=== PATIENT | male | born 1950 | race African-American/Black ===

== ENCOUNTER 2019-10-10 17:48 | Emergency (ER) | payer MEDICARE, OTHER ==
[~2019-10-10] VITALS: Ht 185 cm; Wt 116.0 kg
--- NOTE | 2019-10-10 18:19 | ED Abdominal Pain ---
General Chief Complaint: Abdominal/GI Problems Stated Complaint: RT SIDE ABD PAIN Nursing Triage Note: Patient ambulatory to ER with complaint of right abdominal pain. Patient states this pain began last night. He states he was constipated today so he took a dulcolax which produced a small BM but he continues to have pain. He denies any nausea or vomiting. Sepsis Screen: No Definite Risk Source of Information: Patient Exam Limitations: No Limitations History of Present Illness Date Seen by Provider: Oct 10, 2019 Time Seen by Provider: 18:18 Initial Comments To ER with right lateral upper abdominal pain for 2 months. He denies nausea or vomiting. He's been to [facility] and put on Zofran, omeprazole. He currently rates the pain 9 out of 10 no fevers or chills. Pain has been constant for 2 months. History of cholecystectomy in 2012. Timing/Duration: Getting Worse, Other (2 months) Severity/Quality: Moderate Location: RUQ Radiation: No Radiation Activities at Onset: None Associated Symptoms: Denies Symptoms Allergies and Home Medications Allergies Coded Allergies: Penicillins (Verified Allergy, Unknown, 10/10/19) Patient Home Medication List Home Medication List Reviewed: Yes Review of Systems Review of Systems Constitutional: see HPI; No chills, No fever EENTM: No Symptoms Reported Respiratory: No Symptoms Reported Cardiovascular: See HPI Gastrointestinal: See HPI, Abdominal Pain Genitourinary: No Symptoms Reported Musculoskeletal: no symptoms reported Skin: no symptoms reported Psychiatric/Neurological: No Symptoms Reported Endocrine: No Symptoms Reported Past Qwnagcn-Ccbudx-Iiqbuw Hx Patient Social History Recent Foreign Travel: No Contact w/Someone Who Travel: No Recent Infectious Disease Expo: No Physical Abuse: No Sexual Abuse: No Mistreated: No Fear: No Physical Exam Vital Signs Vital Signs - First Documented 10/10/19 18:01 Temp 35.1 Pulse 93 Resp 18 B/P (MAP) 153/85 (107) Pulse Ox 96 O2 Delivery Room Air Capillary Refill : Less Than 3 Seconds Height/Weight/BMI Height: '" Weight: lbs. oz. kg; 33.00 BMI Method: General Appearance: WD/WN, no apparent distress Neck: non-tender, full range of motion Respiratory: no respiratory distress, no accessory muscle use Cardiovascular: regular rate, rhythm, no murmur Gastrointestinal: normal bowel sounds, non tender, soft Extremities: normal range of motion, non-tender Neurologic/Psychiatric: alert, normal mood/affect, oriented x 3 Skin: normal color, warm/dry Progress/Results/Core Measures Results/Orders Lab Results Laboratory Tests Test 10/10/19 18:25 Range/Units White Blood Count 11.0 4.3-11.0 10^3/uL Red Blood Count 4.93 4.35-5.85 10^6/uL Hemoglobin 14.2 13.3-17.7 G/DL Hematocrit 44 40-54 % Mean Corpuscular Volume 89 80-99 FL Mean Corpuscular Hemoglobin 29 25-34 PG Mean Corpuscular Hemoglobin Concent 32 32-36 G/DL Red Cell Distribution Width 14.5 10.0-14.5 % Platelet Count 249 130-400 10^3/uL Mean Platelet Volume 11.4 H 7.4-10.4 FL Neutrophils (%) (Auto) 73 42-75 % Lymphocytes (%) (Auto) 15 12-44 % Monocytes (%) (Auto) 9 0-12 % Eosinophils (%) (Auto) 2 0-10 % Basophils (%) (Auto) 1 0-10 % Neutrophils # (Auto) 8.0 H 1.8-7.8 X 10^3 Lymphocytes # (Auto) 1.7 1.0-4.0 X 10^3 Monocytes # (Auto) 1.0 0.0-1.0 X 10^3 Eosinophils # (Auto) 0.3 0.0-0.3 10^3/uL Basophils # (Auto) 0.1 0.0-0.1 10^3/uL Urine Color NADINE H Urine Clarity CLEAR Urine pH 5.5 5-9 Urine Specific [place] >=1.030 1.016-1.022 Urine Protein NEGATIVE NEGATIVE Urine Glucose (UA) NEGATIVE NEGATIVE Urine Ketones NEGATIVE NEGATIVE Urine Nitrite NEGATIVE NEGATIVE Urine Bilirubin NEGATIVE NEGATIVE Urine Urobilinogen 1.0 < = 1.0 MG/DL Urine Leukocyte Esterase NEGATIVE NEGATIVE Urine RBC (Auto) NEGATIVE NEGATIVE Urine RBC NONE /HPF Urine WBC RARE /HPF Urine Crystals NONE /LPF Urine Bacteria FEW H /HPF Urine Casts NONE /LPF Urine Mucus SMALL H /LPF Urine Culture Indicated NO Sodium Level 139 135-145 MMOL/L Potassium Level 3.8 3.6-5.0 MMOL/L Chloride Level 99 98-107 MMOL/L Carbon Dioxide Level 26 21-32 MMOL/L Anion Gap 14 5-14 MMOL/L Blood Urea Nitrogen 13 7-18 MG/DL Creatinine 0.83 0.60-1.30 MG/DL Estimat Glomerular Filtration Rate > 60 BUN/Creatinine Ratio 16 Glucose Level 92 70-105 MG/DL Calcium Level 9.9 8.5-10.1 MG/DL Corrected Calcium 10.3 H 8.5-10.1 MG/DL Total Bilirubin 1.2 H 0.1-1.0 MG/DL Aspartate Amino Transf (AST/SGOT) 200 H 5-34 U/L Alanine Aminotransferase (ALT/SGPT) 60 H 0-55 U/L Alkaline Phosphatase 409 H 40-136 U/L Total Protein 7.9 6.4-8.2 GM/DL Albumin 3.5 3.2-4.5 GM/DL Lipase 14 8-78 U/L My Orders Orders - YUNG WOO PAINT MIXER MACHINE Cbc With Automated Diff (10/10/19 18:13) Comprehensive Metabolic Panel (10/10/19 18:13) Lipase (10/10/19 18:13) Ed Iv/Invasive Line Start (10/10/19 18:13) Ct Abdomen/Pelvis W (10/10/19 18:17) Fentanyl Injection (Sublimaze Injection (10/10/19 18:30) Iohexol Injection (Omnipaque 350 Mg/Ml 1 (10/10/19 19:00) Received Contrast (Hold Metformin- Contr (10/10/19 19:00) Ns (Ivpb) (Sodium Chloride 0.9% Ivpb Bag (10/10/19 19:00) Oxycodone Immediate Rel Tablet (Oxyir Ta (10/10/19 20:00) Fentanyl Injection (Sublimaze Injection (10/10/19 20:00) Oxycodone Immediate Rel Tablet (Oxyir Ta (10/10/19 19:45) Medications Given in ED Current Medications Medications Dose Ordered Sig/Aki Route Start Time Stop Time Status Last Admin Dose Admin Fentanyl Citrate 50 mcg ONCE ONCE IVP 10/10/19 18:30 10/10/19 18:31 DC 10/10/19 18:28 50 MCG Fentanyl Citrate 50 mcg ONCE ONCE IVP 10/10/19 20:00 10/10/19 20:01 DC 10/10/19 19:53 50 MCG Iohexol 100 ml ONCE ONCE IV 3/13/20 19:00 10/10/19 19:03 DC 10/10/19 19:16 100 ML Oxycodone HCl 5 mg ONCE ONCE PO 10/10/19 20:00 10/10/19 20:01 DC 10/10/19 19:53 5 MG Sodium Chloride 100 ml ONCE ONCE IV 10/10/19 19:00 10/10/19 19:03 DC 10/10/19 19:16 100 ML Vital Signs/I&O 10/10/19 18:01 Temp 35.1 Pulse 93 Resp 18 B/P (MAP) 153/85 (107) Pulse Ox 96 O2 Delivery Room Air Blood Pressure Mean: 107 Diagnostic Imaging Diagonstic Imaging: CT Comments NAME: FROYLAN EDMONDSYUMIKO MED REC#: [id number] PT STATUS: REG ER : 1950 PHYSICIAN: YUNG WOO APRN ADMIT DATE: 10/10/19/ER Draft Date of Exam:10/10/19 CT ABDOMEN/PELVIS W PROCEDURE: CT abdomen and pelvis with contrast. TECHNIQUE: Multiple contiguous axial images were obtained through the abdomen and pelvis after administration of intravenous contrast. Auto Exposure Controls were utilized during the CT exam to meet ALARA standards for radiation dose reduction. INDICATION: Right-sided abdominal pain. Constipation There are multiple liver lesions present involving all segments of the liver ranging in size from several millimeters up to the confluence of lesions in the central portion of the liver involving an area measuring approximately 11 x 12 cm. Changes are most consistent with metastatic disease as there is a multicystic complex mass in the head of the pancreas measuring approximately 5 x 6 cm. The bile ducts are not dilated. The gallbladder is absent. The body and tail of the pancreas appear normal. The adrenals are normal. Kidneys, ureters and bladder are normal. No acute bowel abnormality is seen. There is a small ventral hernia at the level of the umbilicus. There is a small amount of ascites in the dependent portion of the pelvis. No acute bony abnormality is seen. There are multiple subcentimeter lesions in both lower lobes also most likely secondary to metastatic disease. IMPRESSION: There is a complex multicystic mass involving the head of the pancreas which most likely represents primary pancreatic neoplasm with diffuse metastatic disease to the liver and lungs. Dictated on workstation # [id number] Dict: 10/10/191929 Trans: 10/10/191943 BRANDAN [id number] Interpreted by: JUSTIN MALDONADO MD Electronically signed by: Departure Communication (Admissions) I spoke with Jarred Quick from [facility]. He has the orthotic/prosthetic practitioner for him tonight. This was to ensure close follow-up next week since it is Sunday night. Patient's pain is well controlled I have no indication for admission at this time. Impression Primary Impression: Metastases to the liver Additional Impression: Pancreatic mass Disposition: HOME, SELF-CARE Condition: Stable Departure-Patient Inst. Decision time for Depature: 20:10 Referrals: JARRED DANGELO MD (PCP) Primary Care Physician CHUCK BAUGH WARNER MD XUN, CHANG-QING MD Patient Instructions: Pancreatic Cancer Add. Discharge Instructions: 1. Return to ER for any uncontrollable vomiting, fevers, intolerable pain. Use the pain medication as directed. Call [facility] at 8 AM on Sunday to make an appointment to be seen as soon as possible and to discuss referral to oncology. All discharge instructions reviewed with patient and/or family. Voiced understanding. Scripts Oxycodone Hcl (Oxycodone IR) 5 Mg Tab 5 MG PO Q4H PRN for PAIN-SEVERE for 7 Days, #30 TAB Prov: YUNG WOO APRN 10/10/19 Copy Copies To 1: JARRED DANGELO MD, PETER J APRN Oct 10, 2019 18:19
[2019-10-10] MEDS ORDERED: fentaNYL INJECTION 100 MCG/2 ML AMP IVP ONE ×2 (18:30→20:00)
[2019-10-10 18:35] LABS: BASOPHILS # (AUTO) 0.1 10^3/uL (0.0-0.1); BASOPHILS % (AUTO) 1 % (0-10); EOSINOPHILS # (AUTO) 0.3 10^3/uL (0.0-0.3); EOSINOPHILS % (AUTO) 2 % (0-10); HEMATOCRIT 44 % (40-54); HEMOGLOBIN 14.2 G/DL (13.3-17.7); LYMPHOCYTES # (AUTO) 1.7 X 10^3 (1.0-4.0); LYMPHOCYTES % (AUTO) 15 % (12-44); MEAN CORPUSCULAR HEMOGLOBIN 29 PG (25-34); MEAN CORPUSCULAR HGB CONC 32 G/DL (32-36); MEAN CORPUSCULAR VOLUME 89 FL (80-99); MEAN PLATELET VOLUME 11.4 FL (7.4-10.4); MONOCYTES % (AUTO) 9 % (0-12); NEUTROPHILS % (AUTO) 73 % (42-75); PLATELET COUNT 249 10^3/uL (130-400); RED CELL DISTRIBUTION WIDTH 14.5 % (10.0-14.5)
[2019-10-10 18:36] LABS: BILIRUBIN,URINE NEGATIVE (NEGATIVE); CLARITY,URINE CLEAR; COLOR,URINE AMBER; GLUCOSE, URINE (UA) NEGATIVE (NEGATIVE); KETONES,URINE NEGATIVE (NEGATIVE); LEUKOCYTE ESTERASE ,URINE NEGATIVE (NEGATIVE); NITRITE,URINE NEGATIVE (NEGATIVE); PH,URINE 5.5 (5-9); PROTEIN,URINE NEGATIVE (NEGATIVE)
[2019-10-10 18:42] LABS: WBC,URINE RARE /HPF
[2019-10-10 18:43] LABS: BACTERIA,URINE FEW /HPF
[2019-10-10 18:53] LABS: ALANINE AMINOTRANSFERASE 60 U/L (0-55); ALBUMIN 3.5 GM/DL (3.2-4.5); ALKALINE PHOSPHATASE 409 U/L (40-136); BILIRUBIN,TOTAL 1.2 MG/DL (0.1-1.0); BUN/CREATININE RATIO 16; CALCIUM 9.9 MG/DL (8.5-10.1); CARBON DIOXIDE 26 MMOL/L (21-32); CHLORIDE 99 MMOL/L (98-107); CREATININE SERUM 0.83 MG/DL (0.60-1.30); GFR ESTIMATED > 60; GLUCOSE 92 MG/DL (70-105); LIPASE 14 U/L (8-78); POTASSIUM 3.8 MMOL/L (3.6-5.0); SODIUM 139 MMOL/L (135-145); TOTAL PROTEIN 7.9 GM/DL (6.4-8.2)
[2019-10-10] MEDS ORDERED: NS 100 ML (IVPB) BAG IV ONE (19:00)
[2019-10-10] MEDS ORDERED: HOLD METFORMIN - RECEIVED CONTRAST 20 ML VIAL IV SCH (19:00)
[2019-10-10] MEDS ORDERED: IOHEXOL 350 MG/ML 100 ML (OMNIPAQUE 350) VIAL IV ONE (19:00)
--- NOTE | 2019-10-10 19:09 | NUR ---
Report given to Josephine DANIELS.
--- NOTE | 2019-10-10 19:45 | Diagnostic Imaging Report ---
PROCEDURE: CT abdomen and pelvis with contrast. TECHNIQUE: Multiple contiguous axial images were obtained through the abdomen and pelvis after administration of intravenous contrast. Auto Exposure Controls were utilized during the CT exam to meet ALARA standards for radiation dose reduction. INDICATION: Right-sided abdominal pain. Constipation There are multiple liver lesions present involving all segments of the liver ranging in size from several millimeters up to the confluence of lesions in the central portion of the liver involving an area measuring approximately 11 x 12 cm. Changes are most consistent with metastatic disease as there is a multicystic complex mass in the head of the pancreas measuring approximately 5 x 6 cm. The bile ducts are not dilated. The gallbladder is absent. The body and tail of the pancreas appear normal. The adrenals are normal. Kidneys, ureters and bladder are normal. No acute bowel abnormality is seen. There is a small ventral hernia at the level of the umbilicus. There is a small amount of ascites in the dependent portion of the pelvis. No acute bony abnormality is seen. There are multiple subcentimeter lesions in both lower lobes also most likely secondary to metastatic disease. IMPRESSION: There is a complex multicystic mass involving the head of the pancreas which most likely represents primary pancreatic neoplasm with diffuse metastatic disease to the liver and lungs. Dictated by: Dictated on workstation # [id number]
[2019-10-10] MEDS ORDERED: OXC5T PO (20:11)
[2019-10-10] MEDS ORDERED: RX-OXYCODONE/APAP 5-325 MG #4 TAB PK PO ONE (20:48)
[2019-10-10 20:56] VITALS: BP 165/98
[2019-10-10] MEDS ORDERED: RX-OXYCODONE/APAP 5-325 MG #4 TAB PK PO PRN (21:00)
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
--- OUTSIDE RECORDS SUMMARY | 2019-10-12 14:41 | XMS REPORT ---
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
--- OUTSIDE RECORDS SUMMARY | 2019-10-12 14:41 | XMS REPORT ---
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
--- OUTSIDE RECORDS SUMMARY | 2019-10-12 14:41 | XMS REPORT | Continuity of Care Document ---
Author Organization Unknown Address Unknown Phone Unavailable Allergies There is no data. Medications There is no data. Problems There is no data. Procedures There is no data. Results Test Result Range LIPID PANEL - 06/08/17 09:27 CHOLESTEROL, TOTAL 166 mg/dL <200 HDL CHOLESTEROL 50 mg/dL >40 TRIGLYCERIDES 73 mg/dL <150 LDL-CHOLESTEROL 100 mg/dL (calc) NRG CHOL/HDLC RATIO 3.3 (calc) <5.0 NON HDL CHOLESTEROL 116 mg/dL (calc) <13 0 CMP - 07/12/18 11:55 GLUCOSE 110 mg/dL 65-139 UREA NITROGEN (BUN) 22 mg/dL 7-25 CREATININE 0.70 mg/dL 0.70-1.25 eGFR NON-AFR. BERMUDIAN 98 mL/min/1.73m2 > OR = 60 eGFR 113 mL/min/1.73m2 > OR = 60 BUN/CREATININE RATIO NOT APPLICABLE (calc) 6-22 SODIUM 141 mmol/L 135-146 POTASSIUM 3.5 mmol/L 3.5-5.3 CHLORIDE 103 mmol/L 98-110 CARBON DIOXIDE 30 mmol/L 20-32 CALCIUM 9.7 mg/dL 8.6-10.3 PROTEIN, TOTAL 7.3 g/dL 6.1-8.1 ALBUMIN 4.4 g/dL 3.6-5.1 GLOBULIN 2.9 g/dL (calc) 1.9-3.7 ALBUMIN/GLOBULIN RATIO 1.5 (calc) 1.0-2. 5 BILIRUBIN, TOTAL 0.5 mg/dL 0.2-1.2 ALKALINE PHOSPHATASE 91 U/L 40-115 AST 18 U/L 10-35 ALT 21 U/L 9-46 CRP - 07/12/18 11:55 C-REACTIVE PROTEIN 0.6 mg/L <8.0 BMP - 12/27/18 10:37 GLUCOSE 114 mg/dL 65-99 UREA NITROGEN (BUN) 15 mg/dL 7-25 CREATININE 0.68 mg/dL 0.70-1.25 eGFR NON-AFR. BERMUDIAN 99 mL/min/1.73m2 > OR = 60 eGFR 115 mL/min/1.73m2 > OR = 60 BUN/CREATININE RATIO 22 (calc) 6-22 SODIUM 142 mmol/L 135-146 POTASSIUM 3.9 mmol/L 3.5-5.3 CHLORIDE 106 mmol/L 98-110 CARBON DIOXIDE 31 mmol/L 20-32 CALCIUM 9.6 mg/dL 8.6-10.3 CMP - 08/25/19 14:55 GLUCOSE 130 mg/dL 65-99 UREA NITROGEN (BUN) 17 mg/dL 7-25 CREATININE 0.72 mg/dL 0.70-1.25 eGFR NON-AFR. BERMUDIAN 96 mL/min/1.73m2 > OR = 60 eGFR 111 mL/min/1.73m2 > OR = 60 BUN/CREATININE RATIO NOT APPLICABLE (calc) 6-22 SODIUM 139 mmol/L 135-146 POTASSIUM 4.1 mmol/L 3.5-5.3 CHLORIDE 101 mmol/L 98-110 CARBON DIOXIDE 29 mmol/L 20-32 CALCIUM 9.9 mg/dL 8.6-10.3 PROTEIN, TOTAL 7.4 g/dL 6.1-8.1 ALBUMIN 4.3 g/dL 3.6-5.1 GLOBULIN 3.1 g/dL (calc) 1.9-3.7 ALBUMIN/GLOBULIN RATIO 1.4 (calc) 1.0-2. 5 BILIRUBIN, TOTAL 0.6 mg/dL 0.2-1.2 ALKALINE PHOSPHATASE 185 U/L 40-115 AST 45 U/L 10-35 ALT 29 U/L 9-46 Complete blood count (CBC) with automate d white blood cell (WBC) differential - 10/10/19 18:25 Blood leukocytes automated count (number/volume) 11.0 10*3/uL 4.3-11.0 Blood erythrocytes automated count (number/volume) 4.93 10*6/uL 4.35-5.85 Venous blood hemoglobin measurement (mass/volume) 14.2 g/dL 13.3-17.7 Blood hematocrit (volume fraction) 44 % 40-54 Automated erythrocyte mean corpuscular volume 89 [ foz_us] 80-99 Automated erythrocyte mean corpuscular h emoglobin (mass per erythrocyte) 29 pg 25-34 Automated erythrocyte mean corpuscular h emoglobin concentration measurement (mass/volume) 32 g/dL 32-36 Automated erythrocyte distribution width ratio 14. 5 % 10.0- 14.5 Automated blood platelet count (count/volume) 249 10*3/uL 130-400 Automated blood platelet mean volume measurement 11.4 [foz_us] 7.4-10.4 Automated blood neutrophils/100 leukocytes 73 % 42-75 Automated blood lymphocytes/100 leukocytes 15 % 12-44 Blood monocytes/100 leukocytes 9 % 0-12 Automated blood eosinophils/100 leukocytes 2 % 0-10 Automated blood basophils/100 leukocytes 1 % 0-10 Blood neutrophils automated count (number/volume) 8.0 10*3 1.8-7.8 Blood lymphocytes automated count (number/volume) 1.7 10*3 1.0-4.0 Blood monocytes automated count (number/volume) 1. 0 10*3 0.0-1.0 Automated eosinophil count 0.3 10*3/uL 0 .0-0.3 Automated blood basophil count (count/volume) 0.1 10*3/uL 0.0-0.1 Complete urinalysis with reflex to cultu re - 10/10/19 18:25 Urine color determination NADINE NRG Urine clarity determination CLEAR NR G Urine pH measurement by test strip 5.5 5-9 Specific gravity of urine by test strip >= 1.016-1.022 Urine protein assay by test strip, semi-quantitative NEGATIVE NEGATIVE Urine glucose detection by automated test strip NE GATIVE NEGATIVE Erythrocytes detection in urine sediment by light micr oscopy NEGATIVE NEGATIVE Urine ketones detection by automated test strip NE GATIVE NEGATIVE Urine nitrite detection by test strip NEGATIVE NEGATIVE Urine total bilirubin detection by test strip NEGA TIVE NEGATIVE Urine urobilinogen measurement by automated test strip (mass/volume) 1.0 mg/dL < = 1.0 Urine leukocyte esterase detection by dipstick NEG ATIVE NEGATIVE Automated urine sediment erythrocyte cou nt by microscopy (number/high power field) NONE NRG Automated urine sediment leukocyte count by microscopy (number/high power field) RARE NRG Bacteria detection in urine sediment by light microsco py FEW NRG Crystals detection in urine sediment by light microsco py NONE NRG Casts detection in urine sediment by light microscopy NONE NRG Mucus detection in urine sediment by light microscopy SMALL NRG Complete urinalysis with reflex to culture NO NRG Comprehensive metabolic panel - 10/10/19 18:25 Serum or plasma sodium measurement (moles/volume) 139 mmol/L 135-145 Serum or plasma potassium measurement (moles/volume) 3.8 mmol/L 3.6-5.0 Serum or plasma chloride measurement (moles/volume) 99 mmol/L 98-107 Carbon dioxide 26 mmol/L 21-32 Serum or plasma anion gap determination (moles/volume) 14 mmol/L 5-14 Serum or plasma urea nitrogen measurement (mass/volume ) 13 mg/dL 7-18 Serum or plasma creatinine measurement (mass/volume) 0.83 mg/dL 0.60-1.30 Serum or plasma urea nitrogen/creatinine mass ratio 16 NRG Serum or plasma creatinine measurement w ith calculation of estimated glomerular filtration rate > NRG Serum or plasma glucose measurement (mass/volume) 92 mg/dL 70-105 Serum or plasma calcium measurement (mass/volume) 9.9 mg/dL 8.5-10.1 Serum or plasma total bilirubin measurement (mass/volu me) 1.2 mg/dL 0.1-1.0 Serum or plasma alkaline phosphatase katie surement (enzymatic activity/volume) 409 U/L 40-136 Serum or plasma aspartate aminotransfera se measurement (enzymatic activity/volume) 200 U/L 5-34 Serum or plasma alanine aminotransferase measurement (enzymatic activity/volume) 60 U/L 0-55 Serum or plasma protein measurement (mass/volume) 7.9 g/dL 6.4-8.2 Serum or plasma albumin measurement (mass/volume) 3.5 g/dL 3.2-4.5 CALCIUM CORRECTED 10.3 mg/dL 8.5-10.1 Lipase - 10/10/19 18:25 Lipase 14 U/L 8-78 Encounters ACCT No. Visit Date/Time Discharge Status Pt. Type Provider Facility Loc./Unit Complaint [id number] 09/22/2019 13:20:00 09/22/2019 23:59: 59 CLS Outpatient [facility] [id number] 08/25/2019 14:20:00 Document Registration [id number] 12/27/2018 10:40:00 Document Registration [id number] 07/12/2018 11:20:00 Document Registration [id number] 06/08/2017 09:00:00 Document Registration [id number] 10/10/2019 18:38:00 Document Registration
--- OUTSIDE RECORDS SUMMARY | 2019-10-12 14:41 | XMS REPORT ---
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 [address]-42 25 MG Orally Once a day Feb 1 tablet Osteo Bi-Flex Adv Triple [facility] [address] - Orally not defined Z34-Saaavi [facility] [address] 1 MG Orally not defined Aleve [facility] [address]-80 220 MG Orally every 12 hrs 1 tablet as needed Epfopp-Muzyeetgp-St-Mg-C-D NDC 0 Orally not defined Viagra [facility] [address]-07 100 MG Orally Once a day 1 tablet as needed Multi For Him [address] [facility] [id number] Orally n ot defined Procedures Procedure Coding System Code Date INTRAORL-PERIAPICAL 1 FILM 62029 CPT-4 D0220 Apr 26, 2016 INTRAORL-PERIAPICAL EA ADD FILM CPT-4 D0230 Apr 26, 2016 COMP ORAL EVALUATION - NEW/EST PT CPT-4 D0150 Apr 26, 2016 Billing Notes on claim CPT-4 EC109 Apr 26, 2016 TOPICAL FLUORIDE VARNISH CPT-4 D1206 Mar BITEWINGS - FOUR FILMS CPT-4 D0274 Apr 26, 2016 INTRAORL-PERIAPICAL EA ADD FILM CPT-4 D0230 Apr 26, 2016 Periodontal maint procedures CPT-4 D4910 Mar PANORAMIC FILM SEE ALSO CODE 16953 CPT-4 D0330 Apr 26, 2016 Vital Signs Date/Time: Apr 26, 2016 Blood Pressure Diastolic 74 mmHg Blood Pressure Systolic 121 mmHg Height 73.5 in Results No Known Results Summary Purpose eClinicalWorks Submission
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
--- OUTSIDE RECORDS SUMMARY | 2019-10-12 14:41 | XMS REPORT ---
Author Author Julius DANGELO Organization [facility] Address [address] [place] [address] Care Team Providers Care Tech Writer Name Role Phone JARRED DANGELO Unavailable PROBLEMS Type Condition ICD9-CM Code [id number] Code Onset Dates Condition S tatus SNOMED Code Problem Erectile dysfunction N52.9 Active 480444920 Problem Hypertension, benign I10 Active 80426656 Assessment Hypertension, benign I10 Mar, Activ e 37962385 ALLERGIES Substance Reaction Event Type Date Status Lisinopril itching Drug Allergy Mar, Active Diltiazem HCl elevated blood pressure Drug Allergy Mar, Act olena SOCIAL HISTORY No smoking Hx information available PLAN OF CARE VITAL SIGNS Height 73.5 in 2016-04-21 Weight 255.4 lbs 2016-04-21 Heart Rate 70 bpm 2016-04-21 Respiratory Rate 20 2016-04-21 BMI 33.24 kg/m2 2016-04-21 Blood pressure systolic 132 mmHg 2016-04-21 Blood pressure diastolic 82 mmHg 2016-04-21 MEDICATIONS Medication Instructions Dosage Frequency Start Date End Date Duration S tatus Aleve 220 MG Orally every 12 hrs 1 tablet as needed 12h Active Fblwid-Lfexixose-Io-Mg-C-D Active Hydrochlorothiazide 25 MG Orally Once a day 1 tablet 24h Feb, 6 Active E89-Badkde 1 MG Active Osteo Bi-Flex Adv Triple St - Active Viagra 100 MG Orally Once a day 1 tablet as needed 24h Active Multi For Him 50+ Active RESULTS No Results PROCEDURES Procedure Date Ordered Related Diagnosis Body Site Office Visit, Est Pt., Level 2 Apr 21, 2016 IMMUNIZATIONS No Known Immunizations
--- OUTSIDE RECORDS SUMMARY | 2019-10-12 14:41 | XMS REPORT ---
Author Julius Espinoza Organization [employer] Address Unknown Phone Unavailable Care Team Providers Care Digital Music Instructor Name Role Phone JARRED DANGELO CP Unavailable Allergies No Known Allergies Problems Problem Type Condition Code Onset Dates Condition Statu s Problem Hypertension, benign I10 Active Assessment PPD positive R76.11 Active Problem Erectile dysfunction N52.9 Active Medications No Known Medications Results No Known Results Summary Purpose eClinicalWorks Submission
--- OUTSIDE RECORDS SUMMARY | 2019-10-12 14:41 | XMS REPORT ---
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
--- OUTSIDE RECORDS SUMMARY | 2019-10-12 14:41 | XMS REPORT ---
Author Julius Espinoza [facility] eClinicalWorks Address Unknown Phone Unavailable Care Team Providers Care Textile Coating Machine Operator Name Role Phone JARRED DANGELO CP Unavailable Allergies No Known Allergies Problems Problem Type Condition Code Onset Dates Condition Statu s Problem Hypertension, benign I10 Active Problem Erectile dysfunction N52.9 Active Medications Medication Code System Code Instructions Start Date End Date Status Dosage Hydrochlorothiazide [facility] [address]-24 25 MG Orally Once a day Feb 1 tablet Results No Known Results Summary Purpose eClinicalWorks Submission
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
--- OUTSIDE RECORDS SUMMARY | 2019-10-12 14:41 | XMS REPORT ---
Author Julius Espinoza Organization [employer] Address Unknown Phone Unavailable Care Team Providers Care [employer] Supervisor Name Role Phone JARRED DANGELO CP Unavailable Allergies No Known Allergies Problems Problem Type Condition Code Onset Dates Condition Statu s Problem Hypertension, benign I10 Active Assessment PPD positive R76.11 Active Problem Erectile dysfunction N52.9 Active Medications No Known Medications Procedures Procedure Coding System Code Date CHEST X-RAY CPT-4 94630 May 12, 2016 Results No Known Results Summary Purpose [employer] Submission
== END 2019-10-10 20:55 | disposition home or self-care (01) ==
LOC: EDUNIT# 17:48 → ER 17:50
DX: C25.9 Malignant neoplasm of pancreas, unspecified (principal); C78.7 Secondary malignant neoplasm of liver and intrahepatic bile duct; K86.89 Other specified diseases of pancreas; Z88.0 Allergy status to penicillin
CPT/HCPCS: 36415; 74177; 80053; 81000; 83690; 85025